=== PATIENT | male | born 1985 | race African-American/Black ===

== ENCOUNTER 2023-03-16 11:42 | Inpatient (IN) | payer BC, MEDICAID ==
[~2023-03-16] VITALS: Ht 188 cm; Wt 104.8 kg
[2023-03-16 08:00] VITALS: BP 163/79; PULSE 113; RESP 20; TEMP 101.6
[2023-03-16 12:46] LABS: HEMATOCRIT. 34.7 % (42.0-52.0); MEAN CORPUSCULAR HEMOGLOBIN 21.7 pg (28.0-32.0); MEAN CORPUSCULAR HGB CONC 31.7 g/dL (31.0-37.0); MEAN CORPUSCULAR VOLUME 68.4 fL (80.0-94.0); MEAN PLATELET VOLUME 7.7 fl (7.4-10.4); PLATELET 333 x1000/uL (130-400); RED BLOOD CELL COUNT 5.08 mill/uL (4.7-6.1); RED CELL DISTRIBUTION WIDTH 14.4 % (11.6-14.6)
[2023-03-16 12:47] LABS: DIFFERENTIAL COMMENT 1
[2023-03-16 13:17] LABS: HYPOCHROMASIA 1+; MICROCYTOSIS 3+; PLATELET ESTIMATE NORMAL
[2023-03-16 13:20] LABS: ALANINE AMINOTRANSFERASE 101 IU/L (10-49); ALBUMIN 4.2 g/dL (3.2-4.8); ASPARTATE AMINOTRANSFERASE 70 IU/L (<34); BILIRUBIN TOTAL 0.7 mg/dL (0.1-1.0); CARBON DIOXIDE 29 mEq/L (21-32); CHLORIDE 97 mEq/L (98-107); CREATININE 1.2 mg/dL (0.6-1.3); GLUCOSE 131 mg/dL (70-105); POTASSIUM 3.7 mEq/L (3.5-5.1); PROTEIN TOTAL 8.6 g/dL (6.0-8.3); SODIUM 133 mEq/L (136-145); TROPONIN I HIGH SENSITIVITY 6 ng/L (3.0-53); UREA NITROGEN BLOOD 20 mg/dL (9-23)
[2023-03-16 13:23] LABS: ETHANOL BLOOD < 10 mg/dL (<10)
[2023-03-16] MEDS ORDERED: IOHEXOL-350 100 ML BOTTLE ONE (15:02)
[2023-03-16] MEDS: ACETAMINOPHEN 325MG TABLET PO PRN (16:58)
[2023-03-16 17:24] LABS: INR 1.2
[2023-03-16] MEDS ORDERED: CEFTRIAXONE 2GM/50ML (ADDEASE) 50 ML IV SCH (17:45)
[2023-03-16] MEDS ORDERED: AZITHROMYCIN 500 MG TABLET PO NR (17:45)
[2023-03-16] MEDS ORDERED: VANCOMYCIN 2,000 MG in DEXT 5% WATER 500 ML IV NR (18:00)
[2023-03-16] MEDS ORDERED: CEFTRIAXONE 2 G in DEXTROSE 5% WATER 50 ML IV SCH (18:00)
[2023-03-16] MEDS: CEFTRIAXONE 2 G in DEXTROSE 5% WATER 50 ML IV SCH (21:32)
[2023-03-16] MEDS: ACYCLOVIR INJ 750 MG in DEXT 5% WATER 250 ML IV SCH (21:32)
[2023-03-16] MEDS: METRONIDAZOLE 500MG TABLET PO SCH (22:08)
[2023-03-16 22:50] VITALS: BP 163/79; PULSE 113; RESP 20; TEMP 101.6
[2023-03-17] VITALS: BP 112/66; PULSE 112; RESP 19; TEMP 101.1
[2023-03-17] MEDS: ACETAMINOPHEN 325MG TABLET PO PRN ×3 (00:45→19:21)
[2023-03-17 04:00] VITALS: BP 118/80; PULSE 103; RESP 20; TEMP 98.9
[2023-03-17] MEDS: METRONIDAZOLE 500MG TABLET PO SCH ×3 (05:06→21:32)
[2023-03-17] MEDS: ACYCLOVIR INJ 750 MG in DEXT 5% WATER 250 ML IV SCH (05:14)
[2023-03-17 08:10] VITALS: BP 129/80; PULSE 107; RESP 20; TEMP 99.8
[2023-03-17] MEDS: CEFTRIAXONE 2 G in DEXTROSE 5% WATER 50 ML IV SCH ×2 (08:30→21:32)
[2023-03-17] MEDS: VANCOMYCIN 1.25GM PMX (XELLIA) 250 ML IV SCH ×2 (10:20→21:31)
[2023-03-17 12:00] VITALS: BP 119/96; PULSE 90; RESP 20; TEMP 102
[2023-03-17] MEDS: AZITHROMYCIN 500 MG TABLET PO SCH (12:02)
[2023-03-17] MEDS: ACYCLOVIR IV SCH ×2 (15:01→21:33)
[2023-03-17] MEDS: WATER IV SCH ×2 (15:01→21:33)
[2023-03-17] MEDS: DEXT 5% IV SCH ×2 (15:01→21:33)
[2023-03-17 16:00] VITALS: BP 126/69; PULSE 96; RESP 20; TEMP 102.2
[2023-03-17] MEDS ORDERED: SUMA50TA16 PO (17:16)
[2023-03-17] MEDS: DEXAMETHASONE 4MG/ML 1ML VIAL IV SCH (19:33)
[2023-03-17 20:00] VITALS: BP 124/70; PULSE 93; RESP 20; TEMP 100.2
[2023-03-17] MEDS: FAMOTIDINE 20MG TABLET PO SCH (21:32)
[2023-03-18] VITALS: BP 134/75; PULSE 83; RESP 19; TEMP 99.1
[2023-03-18] MEDS: DEXAMETHASONE 4MG/ML 1ML VIAL IV SCH ×5 (00:17→23:59)
[2023-03-18 04:00] VITALS: BP 120/76; PULSE 79; RESP 18; TEMP 97.9
[2023-03-18] MEDS: DEXT 5% IV SCH ×3 (06:27→21:28)
[2023-03-18] MEDS: METRONIDAZOLE 500MG TABLET PO SCH ×3 (06:27→21:29)
[2023-03-18] MEDS: WATER IV SCH ×3 (06:27→21:28)
[2023-03-18] MEDS: ACYCLOVIR IV SCH ×3 (06:27→21:28)
[2023-03-18 07:07] LABS: HEMATOCRIT. 35.6 % (42.0-52.0); HEMOGLOBIN. 11.4 g/dL (14.0-18.0); LYMPHOCYTES % 7.3 % (20.0-50.0); MEAN CORPUSCULAR HGB CONC 32.1 g/dL (31.0-37.0); MEAN CORPUSCULAR VOLUME 68.7 fL (80.0-94.0); MEAN PLATELET VOLUME 8.4 fl (7.4-10.4); MONOCYTES % 6.4 % (2.0-8.0); NEUTROPHILS % 86.3 % (40.0-76.0); PLATELET 347 x1000/uL (130-400); RED BLOOD CELL COUNT 5.18 mill/uL (4.7-6.1); RED CELL DISTRIBUTION WIDTH 15.2 % (11.6-14.6); WHITE BLOOD COUNT 15.4 x1000/uL (4.5-11.0)
[2023-03-18 07:15] LABS: DIFFERENTIAL COMMENT 1
[2023-03-18 07:32] LABS: CALCIUM 9.1 mg/dL (8.7-10.4); CARBON DIOXIDE 30 mEq/L (21-32); CHLORIDE 99 mEq/L (98-107); GLUCOSE 145 mg/dL (70-105); POTASSIUM 4.4 mEq/L (3.5-5.1); SODIUM 131 mEq/L (136-145); UREA NITROGEN BLOOD 16 mg/dL (9-23)
[2023-03-18 08:00] VITALS: BP 127/78; PULSE 18; RESP 18; TEMP 98.9
[2023-03-18] MEDS: AZITHROMYCIN 500 MG TABLET PO SCH (08:21)
[2023-03-18] MEDS: CEFTRIAXONE 2 G in DEXTROSE 5% WATER 50 ML IV SCH ×2 (08:21→21:28)
[2023-03-18] MEDS: FAMOTIDINE 20MG TABLET PO SCH ×2 (08:21→21:28)
[2023-03-18] MEDS: VANCOMYCIN 1.25GM PMX (XELLIA) 250 ML IV SCH ×3 (08:21→23:59)
[2023-03-18 16:00] VITALS: BP 138/74; PULSE 86; RESP 18; TEMP 97.9
[2023-03-18 20:00] VITALS: BP 131/80; PULSE 86; RESP 20; TEMP 97.2
[2023-03-19] VITALS: BP 122/61; PULSE 81; RESP 20; TEMP 97.3
[2023-03-19 04:00] VITALS: BP 119/98; PULSE 78; RESP 18; TEMP 97.2
[2023-03-19] MEDS: METRONIDAZOLE 500MG TABLET PO SCH ×3 (06:50→21:45)
[2023-03-19] MEDS: DEXT 5% IV SCH ×3 (06:50→22:54)
[2023-03-19] MEDS: DEXAMETHASONE 4MG/ML 1ML VIAL IV SCH ×3 (06:50→17:31)
[2023-03-19] MEDS: WATER IV SCH ×3 (06:50→22:54)
[2023-03-19] MEDS: ACYCLOVIR IV SCH ×3 (06:50→22:54)
[2023-03-19 06:58] LABS: HEMATOCRIT. 36.7 % (42.0-52.0); MEAN CORPUSCULAR HEMOGLOBIN 22.3 pg (28.0-32.0); MEAN CORPUSCULAR HGB CONC 32.8 g/dL (31.0-37.0); MEAN CORPUSCULAR VOLUME 68.1 fL (80.0-94.0); MEAN PLATELET VOLUME 8.4 fl (7.4-10.4); PLATELET 431 x1000/uL (130-400); RED CELL DISTRIBUTION WIDTH 14.9 % (11.6-14.6); WHITE BLOOD COUNT 20.3 x1000/uL (4.5-11.0)
[2023-03-19 07:04] LABS: CALCIUM 9.3 mg/dL (8.7-10.4); CARBON DIOXIDE 24 mEq/L (21-32); CHLORIDE 99 mEq/L (98-107); CREATININE 0.8 mg/dL (0.6-1.3); GLUCOSE 139 mg/dL (70-105); POTASSIUM 4.6 mEq/L (3.5-5.1); SODIUM 133 mEq/L (136-145); UREA NITROGEN BLOOD 18 mg/dL (9-23)
[2023-03-19 07:19] LABS: DIFFERENTIAL COMMENT 1
[2023-03-19 08:00] VITALS: BP 131/75; PULSE 81; RESP 18; TEMP 97.9
[2023-03-19] MEDS: LEVETIRACETAM 500MG PREMIX 100 ML IV SCH ×2 (09:57→21:45)
[2023-03-19] MEDS: CEFTRIAXONE 2 G in DEXTROSE 5% WATER 50 ML IV SCH ×2 (09:58→20:49)
[2023-03-19] MEDS: VANCOMYCIN 1.25GM PMX (XELLIA) 250 ML IV SCH (09:58)
[2023-03-19] MEDS: AZITHROMYCIN 500 MG TABLET PO SCH (09:58)
[2023-03-19] MEDS: FAMOTIDINE 20MG TABLET PO SCH ×2 (09:58→20:49)
[2023-03-19] MEDS: LORAZEPAM 2MG/ML UD SYRINGE IV PRN ×2 (09:59→18:49)
[2023-03-19 12:00] VITALS: BP 137/78; PULSE 78; RESP 18; TEMP 97
[2023-03-19] MEDS: VANCOMYCIN 1500MG in DEXTROSE 5% WATER 250ML IV SCH (17:31)
[2023-03-19 20:00] VITALS: BP 134/73; PULSE 70; RESP 19; TEMP 98.6
[2023-03-19 23:33] LABS: HYPOCHROMASIA 1+; MICROCYTOSIS 3+; PLATELET ESTIMATE INCREASED
[2023-03-20] VITALS: BP 112/55; PULSE 66; RESP 20; TEMP 97.5
[2023-03-20 04:00] VITALS: BP 110/66; PULSE 68; RESP 20; TEMP 97.5
[2023-03-20] MEDS: DEXAMETHASONE 4MG/ML 1ML VIAL IV SCH ×4 (04:50→19:08)
[2023-03-20] MEDS: VANCOMYCIN 1500MG in DEXTROSE 5% WATER 250ML IV SCH (04:50)
[2023-03-20] MEDS: DEXT 5% IV SCH ×2 (05:56→14:07)
[2023-03-20] MEDS: ACYCLOVIR IV SCH ×2 (05:56→14:07)
[2023-03-20] MEDS: WATER IV SCH ×2 (05:56→14:07)
[2023-03-20] MEDS: METRONIDAZOLE 500MG TABLET PO SCH ×2 (05:56→14:06)
[2023-03-20] MEDS: CEFTRIAXONE 2 G in DEXTROSE 5% WATER 50 ML IV SCH (07:55)
[2023-03-20 08:00] VITALS: BP 116/69; PULSE 82; RESP 18; TEMP 97.4
[2023-03-20] MEDS: FAMOTIDINE 20MG TABLET PO SCH (08:21)
[2023-03-20] MEDS: AZITHROMYCIN 500 MG TABLET PO SCH (08:21)
[2023-03-20] MEDS: LEVETIRACETAM 500MG PREMIX 100 ML IV SCH (08:22)
[2023-03-20 09:06] LABS: CALCIUM 9.1 mg/dL (8.7-10.4); CARBON DIOXIDE 28 mEq/L (21-32); CHLORIDE 100 mEq/L (98-107); CREATININE 0.9 mg/dL (0.6-1.3); GLUCOSE 137 mg/dL (70-105); POTASSIUM 4.6 mEq/L (3.5-5.1); SODIUM 133 mEq/L (136-145); UREA NITROGEN BLOOD 19 mg/dL (9-23); VANCOMYCIN TROUGH 22.1 ug/mL (5.0-10.0)
[2023-03-20 12:00] VITALS: BP 117/66; PULSE 80; RESP 18; TEMP 97.7
[2023-03-20] MEDS ORDERED: VANCOMYCIN 1500MG in DEXTROSE 5% WATER 250ML IV SCH (14:00)
[2023-03-20] MEDS ORDERED: LORAZEPAM 2MG/ML INJ IV PRN (15:45)
[2023-03-20 16:00] VITALS: BP 118/75; PULSE 80; RESP 17; TEMP 97.3
[2023-03-20 20:14] VITALS: BP 145/88; PULSE 85; TEMP 97.5; O2SAT 99
== END 2023-03-20 21:54 | disposition short-term general hospital (02) | DRG 871 ==
LOC: ER 11:42 → MICUSO 13:28 → EDBEDREQTM 13:54 → EDBEDREQ 13:54 → 7WST 19:42
PROVIDERS: ADMIT Internal Medicine; ATTEND Internal Medicine
PROC: 4A00X4Z Measurement of Central Nervous Electrical Activity, External Approach (ICD-10-PCS; principal; 2023-03-19)
DX: A41.9 Sepsis, unspecified organism (principal); G04.90 Encephalitis and encephalomyelitis, unspecified; G93.41 Metabolic encephalopathy; J69.0 Pneumonitis due to inhalation of food and vomit; G06.2 Extradural and subdural abscess, unspecified; E87.1 Hypo-osmolality and hyponatremia; I62.9 Nontraumatic intracranial hemorrhage, unspecified; D50.9 Iron deficiency anemia, unspecified; Z20.822 Contact with and (suspected) exposure to COVID-19; D72.821 Monocytosis (symptomatic); J32.4 Chronic pansinusitis; G93.9 Disorder of brain, unspecified; R56.9 Unspecified convulsions; R74.01 Elevation of levels of liver transaminase levels
CPT/HCPCS: 36415; 70496; 70498; 70553; 71045; 80048; 80053; 80202; 80320; 82962; 84145; 84484; 85025; 87426; 93005; 95816; 99291; C1893; J0133; J0696; J1100; J1953; J2060; J3370; J7060; Q9967; G0480